=== PATIENT | male | born 1990 ===

== ENCOUNTER 2017-03-01 05:03 | Emergency (ER) | payer SELFPAY ==
[2017-03-01] MEDS ORDERED: ZOFRAN ONE (05:21)
[2017-03-01] MEDS ORDERED: NACL 0.9% 1000 ML 1,000 ML ONE (05:22)
[2017-03-01 05:35] VITALS: BP 123/61
[2017-03-01] MEDS ORDERED: ZOFRAN IV ONE (05:36)
[2017-03-01] MEDS ORDERED: NACL 0.9% 1000 ML 1,000 ML IV ONE (05:38)
[2017-03-01 06:20] LABS: Basophils % (Auto) 0.2 % (0.0-1.8); Eosinophils % (Auto) 0.3 % (0.0-4.3); Hematocrit 43.8 % (35.5-45.6); Hemoglobin 14.3 gm/dl (11.8-15.2); Mean Corpuscular HGB Conc 33 % (32-34); Mean Corpuscular Hemoglobin 29 pg (28-32); Mean Corpuscular Volume 89 fl (84-94); Platelet Count 143 K/mm3 (140-440); Red Blood Count 4.94 M/mm3 (3.65-5.03); Red Cell Distribution Width 14.2 % (13.2-15.2); White Blood Count 12.5 K/mm3 (4.5-11.0)
[2017-03-01 06:39] LABS: Anion Gap 14 mmol/L; BUN/Creatinine Ratio 7; Blood Urea Nitrogen 6 mg/dL (9-20); Calcium 7.9 mg/dL (8.4-10.2); Carbon Dioxide 28 mmol/L (22-30); Chloride 107.2 mmol/L (98-107); Glucose 93 mg/dL (75-100); Potassium 3.7 mmol/L (3.6-5.0); Sodium 145 mmol/L (137-145)
== END 2017-03-01 06:35 | disposition left against medical advice (07) ==
LOC: ED 05:03
DX: R11.10 Vomiting, unspecified (principal); Z53.31 Laparoscopic surgical procedure converted to open procedure
CPT/HCPCS: 36415; 80048; 85025; J2405; J7030